=== PATIENT | male | born 1985 | race Caucasian/White ===

== ENCOUNTER 2018-05-18 14:41 | Emergency (ER) | payer BC ==
[2018-05-18] MEDS: IBUPROFEN 600 MG TAB PO (16:27)
== END 2018-05-18 18:09 | disposition home or self-care (01) ==
LOC: FTE 14:41
DX: N64.59 Other signs and symptoms in breast (principal)
CPT/HCPCS: 71045; 76536; 93005; 99285-25

== ENCOUNTER 2018-05-21 14:38 | Emergency (ER) | payer BC ==
[2018-05-21] MEDS: ACETAMINOPHEN 325 MG TAB PO (15:25)
[2018-05-21] MEDS: IBUPROFEN 200 MG TAB PO (15:25)
== END 2018-05-21 17:15 | disposition home or self-care (01) ==
LOC: FTE 14:38
DX: M54.2 Cervicalgia (principal)
CPT/HCPCS: 72050; 72100; 99283-25